=== PATIENT | female | born 1975 | race Caucasian/White ===

== ENCOUNTER → 2020-06-14 | Outpatient (CLI) | payer BC ==
--- NOTE | 2020-06-18 09:04 | MM ---
Reason for exam: screening (asymptomatic). Last mammogram was performed 2 years and 4 months ago. History: Family history of breast cancer in maternal grandmother and breast cancer in maternal uncle. Physical Findings: A clinical breast exam by your physician is recommended on an annual basis and results should be correlated with mammographic findings. MG 3D Screening Mammo W/Cad Bilateral CC, MLO, and XCCL view(s) were taken. Prior study comparison: February 22, 2018, mammogram, performed at [facility]. May 14, 2016, mammogram, performed at [facility]. The breast tissue is heterogeneously dense. This may lower the sensitivity of mammography. No significant changes when compared with prior studies. ASSESSMENT: Negative, BI-RAD 1 RECOMMENDATION: Routine screening mammogram of both breasts in 1 year.
== END | disposition home or self-care (01) ==
LOC: RADMAMWWP 14:42
PROVIDERS: ATTEND Obstetrics & Gynecology
DX: Z12.31 Encounter for screening mammogram for malignant neoplasm of breast (principal); Z80.3 Family history of malignant neoplasm of breast
CPT/HCPCS: 77063; 77067

== ENCOUNTER → 2021-07-25 | Outpatient (CLI) | payer BC ==
--- NOTE | 2021-07-29 14:31 | MM ---
Reason for exam: screening (asymptomatic). Last mammogram was performed 1 year and 1 month ago. History: Family history of breast cancer in maternal grandmother and breast cancer in maternal uncle. Physical Findings: A clinical breast exam by your physician is recommended on an annual basis and results should be correlated with mammographic findings. MG 3D Screening Mammo W/Cad Bilateral CC and MLO view(s) were taken. Prior study comparison: June 14, 2020, bilateral MG 3d screening mammo w/cad. February 22, 2018, mammogram, performed at [facility]. There are scattered fibroglandular densities. No significant changes when compared with prior studies. ASSESSMENT: Benign, BI-RAD 2 RECOMMENDATION: Routine screening mammogram of both breasts in 1 year.
== END | disposition home or self-care (01) ==
LOC: RADMAMWWP 16:16
PROVIDERS: ATTEND Obstetrics & Gynecology
DX: Z12.31 Encounter for screening mammogram for malignant neoplasm of breast (principal); Z80.3 Family history of malignant neoplasm of breast
CPT/HCPCS: 77063; 77067

== ENCOUNTER 2022-04-24 15:19 | Inpatient (IN) | payer BC ==
[2022-04-24] MEDS ORDERED: ACYCLOVIR 800 MG TAB PO STA (19:47)
[2022-04-24] MEDS ORDERED: methylPREDNISolone SOD SUCCI 125 MG/2 ML VIAL IV STA (19:57)
[2022-04-24] MEDS ORDERED: MORPHINE SULFATE 4 MG/ML SYRINGE IV PRN (20:00)
[2022-04-24] MEDS ORDERED: NALOXONE 0.4 MG/ML 1 ML VIAL IV PRN (20:00)
[2022-04-24] MEDS ORDERED: MORPHINE SULFATE 4 MG/ML SYRINGE IVP STA (20:03)
[2022-04-24] MEDS ORDERED: ARTIFICIAL TEARS-HYPROMELLOSE DROPS 15 ML BTL RIGHT EYE STA (21:42)
[2022-04-24] MEDS: SODIUM CHLORIDE 0.9% 1,000 ML IV SCH (22:03)
--- NOTE | 2022-04-24 22:04 | ED ---
Neuro HPI - General Chief Complaint: Neuro Symptoms/Deficit Stated Complaint: Face paralysis, Shingles Time Seen by Provider: 04/24/22 19:28 Source: patient Mode of arrival: ambulatory Limitations: no limitations - History of Present Illness Is the patient presenting with stroke symptoms?: No Initial Comments: Patient is a 46-year-old female with a past medical history hypertension and diabetes mellitus who presents to the emergency department with a chief complaint of facial paralysis. Patient states she has had a rash over her right side since Labor Day weekend. The rash is both itchy and painful. Patient has not taken any medication for this rash. Patient states 2 days ago she developed right-sided facial paralysis and rash on right face/neck. States she is unable to close her right eye all the way and has issues with smiling. Reports right ear pain which radiates into the right cheek. Reports blurry vision. Denies double vision and eye pain. Patient has history of chickenpox. Denies previous history of shingles. Denies weakness, numbness, tingling in the extremities. - Related Data Home Medications: Home Medications Medication Instructions Recorded Confirmed Cyclobenzaprine [Flexeril] 10 mg PO HS 04/24/22 04/24/22 DULoxetine HCL [Cymbalta] 30 mg PO HS 04/24/22 04/24/22 Fremanezumab-Vfrm [Ajovy 1 syr SQ QMONTHLY 04/24/22 04/24/22 Autoinjector] Rivaroxaban [Xarelto] 20 mg PO HS 04/24/22 04/24/22 lisinopriL [Zestril] 10 mg PO HS 04/24/22 04/24/22 metFORMIN HCL [Glucophage] 1,000 mg PO BID 04/24/22 04/24/22 Allergies/Adverse Reactions: Allergies Allergy/AdvReac Type Severity Reaction Status Date / Time hydromorphone [From Dilaudid] Allergy Unknown Verified 04/24/22 20:21 propoxyphene Allergy Unknown Verified 04/24/22 20:21 [From Darvocet-N] Review of Systems ROS Statement: Those systems with pertinent positive or pertinent negative responses have been documented in the HPI. ROS Other: All systems not noted in ROS Statement are negative. General Exam Limitations: no limitations General appearance: alert, in no apparent distress Head exam: Present: other (1 2 cm lesion on right middle cheek ) Eye exam: Present: PERRL, EOMI. Absent: scleral icterus, conjunctival injection, nystagmus, periorbital swelling, periorbital tenderness Pupils: Present: normal accommodation ENT exam: Present: TM's normal bilaterally, normal external ear exam Neck exam: Present: full ROM. Absent: normal inspection (few small lesions on right neck beneath ear ) Respiratory exam: Present: normal lung sounds bilaterally. Absent: respiratory distress, wheezes, rales, rhonchi, stridor Cardiovascular Exam: Present: regular rate, normal rhythm, normal heart sounds. Absent: systolic murmur, diastolic murmur, rubs, gallop, clicks GI/Abdominal exam: Present: soft, normal bowel sounds, other (dermatomal shingles rash on right flank ). Absent: distended, tenderness, guarding, rebound, rigid Neurological exam: Present: alert, oriented X3, CN II-XII intact Expanded Patient oriented to: Present: person, place, time Cranial nerves: EOM's Intact: Normal, Tongue Deviation: Normal, Nystagmus: Normal, Facial Sensation: Normal, Facial Palsy without Forehead Movement: Abnormal Right (patient cannot lift right eyebrow however has botox for migraines ) Cerebellar function: Finger to Nose: Normal, Heel to Rojas: Normal, Romberg: Normal Sensory exam: Upper Extremity Light Touch: Normal, Lower Extremity Light Touch: Normal Motor strength exam: RUE: 5, LUE: 5, RLE: 5, LLE: 5 Psychiatric exam: Present: normal affect, normal mood Skin exam: Present: warm, dry, intact, normal color, rash Stroke [facility] - Medical Decision Making This is a 46-year-old female who presents with facial paralysis and rash. There is right-sided paralysis with smile asymmetry. Patient is unable to close right eye. There is no forehead movement however patient states she has Botox in forehead. PERRL. Few lesions present on right cheek and right neck. Shingles like rash present on the right torso. 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 Acyclovir and Solu-Medrol given. Pain controlled. Case discussed with [facility] who accepts admission. ID and optho are on consult. Asked nurse to obtain visual acuity several times however this was not completed before patient was admitted and moved upstairs. Dr. Tiwari is my attending. Past Medical History Past Medical History: No Reported History, Diabetes Mellitus, Hypertension Additional Past Medical History / Comment(s): clotting disorder- un dx. 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
[2022-04-25] MEDS: HYDROcodone/APAP 5-325MG 1 EACH TAB PO PRN (04:50)
[2022-04-25] MEDS ORDERED: DEXTROSE 50% SYRINGE 50 ML IVP PRN ×2 (10:05)
[2022-04-25] MEDS: INSULIN ASPART (NovoLOG) 100 UNIT/ML VIAL SQ SCH ×2 (12:57→18:06)
[2022-04-25] MEDS: ACYCLOVIR SODIUM 750 MG in SODIUM CHLORIDE 0.9% 100 ML IVPB SCH ×2 (12:58→20:22)
[2022-04-25] MEDS: GABAPENTIN 100 MG CAP PO SCH ×3 (12:59→21:19)
[2022-04-25] MEDS: metFORMIN 500 MG TAB PO SCH ×2 (12:59→21:14)
[2022-04-25 17:49] LABS: Glucose,Whole Blood 129 mg/dL (70-110)
[2022-04-25] MEDS: SODIUM CHLORIDE 0.9% 1,000 ML IV SCH ×2 (18:05→22:58)
[2022-04-25] MEDS ORDERED: ARTIFICIAL TEARS-HYPROMELLOSE DROPS 15 ML BTL BOTH EYES PRN ×2 (18:19→19:08)
[2022-04-25] MEDS ORDERED: TROPICAMIDE 1% OPHTH DROPS 2 ML BTL BOTH EYES ONE (19:08)
[2022-04-25] MEDS ORDERED: PROPARACAINE 0.5% OPHTH DROPS 15 ML BTL BOTH EYES STA (19:08)
[2022-04-25] MEDS: PHENYLEPHRINE 2.5% OPHTH DRP 2ML BOTH EYES SCH (19:20)
--- NOTE | 2022-04-25 20:10 | P.CON ---
Consult Note - . Consult date: 04/25/22 Assessment/Plan:: This is a 2u8 y/[age] female with type II DM for the last couple of years who is not familiar with her last a-1-C. She, 2 weeks prior to admission, experienced what she initially believed was insect bites whichwere uncomfortable and were as sociated with a rash, on her right lower trunk. 2 days prior to admission she began to experience right facial swelling and pain with poor eyelid closure. Pain has been upwards of 8/10 and is improved on current treatment. She denies any vision changes or diplopia. She feels the numbness on lower portion of the face and along the right side of her tongue. Two months ago completed a diabetic eye exam with no comment of any eye lesions or problems. She only uses OTC readers for near vision work. External: right facial swelling with obvious Lei's palsy and demonstrates poor eyelid tone and totally inadequate closure on the right. She does demonstrate a good Lei's phenomenon. There are no papules or specific lesions on the face or the external pinna or canal. Va: without correction 20/20 OU Pupils: -APD EOM: full D&V CF: normal OU IOP: 15 mm Hg OD, 16 mm Hg OS via tonopen @ 1845 Cornea: no jim staining with fluorescein on examination AC: clear & quiet Iris: blue, normal Lens: clear Dilation 2.5% Hima & 1% trop @ 1855 (expect 7 dilation) Vitreous: clear Optic nerve: S/F/P C:D 0.25 Macula: quiet +FLR Vasc: 0.67 Peripheral: normal without path 360 A: Camden Smith, on the right side. No overt corneal problems at this time, some increased dryness due too poor eyelid function. P: 1) proceed with normal antiviral treatment, as planned 2) will begin regular patching of the eye dressing the eye with appropriate tear ointment and lubricating drops. Prolonged palsy problem may require a partial temporary tarsorraphy. 3) will see in office early next week. Thank you for the consultation.
[2022-04-25] MEDS: ARTIFICIAL TEARS OINTMENT 3.5 GM TUBE RIGHT EYE PRN (20:22)
[2022-04-25 20:41] LABS: Glucose,Whole Blood 175 mg/dL (70-110)
[2022-04-25] MEDS: RIVAROXABAN 20 MG TAB PO SCH (21:14)
[2022-04-25] MEDS: lisinopriL 10 MG TAB PO SCH (21:14)
[2022-04-25] MEDS: CYCLOBENZAPRINE 10 MG TAB PO SCH (21:14)
[2022-04-25] MEDS: DULoxetine HCL 30 MG CAPSULE.DR PO SCH (21:14)
--- NOTE | 2022-04-25 21:21 | P.HPIM ---
History of Present Illness H&P Date: 04/25/22 Chief Complaint: Right face numbness This is a pleasant 46-year-old patient who follows with Dr. Orosco. Chronic stable medical conditions include diabetes, hypertension, chronic pulmonary embolism in 2010 in 2003 on xarelto. Patient developed shingles in the right lateral lower abdomen wall about 2 weeks ago. Has some pain itching in that area. Yesterday patient noticed right-sided face to become numb. And also bit painful. Also feels a bit numb. Decreased blink in the right eye. Discomfort in the right eye. Decided to come in. Patient had not seek in any medical attention for the same. No headache. No fever no chills Review of systems: GEN.: Tired EYES: Slight blurriness in the right vision HEENT: As above NECK: None RESPIRATORY: None CARDIOVASCULAR: None GASTROINTESTINAL: None GENITOURINARY: None MUSCULOSKELETAL: None LYMPHATICS: None HEMATOLOGICAL: None PSYCHIATRY: None NEUROLOGICAL: As above Past medical history to include: Diabetes, GI bleed, hypertension, bony embolism in 2003, 2009, workup was negative, anxiety depression PTSD Social history: . Homemaker. Alcohol rarely. Nonsmoker Physical examination: VITAL SIGNS: 98.4, 120, 20, 1:30/77, 99% on room air upon presentation] GENERAL: BMI 34.7 and declining but awake a bit tired. EYES: Pupils equal. Conjunctiva normal. HEENT: External appearance of nose and ears normal, oral cavity grossly normal. NECK: JVD not raised; masses not palpable. HEART: First and second heart sounds are normal; no edema. LUNGS: Respiratory rate normal; clear to auscultation. ABDOMEN: Soft, nontender, liver spleen not palpable, no masses palpable. . Some healing rash off herpes zoster along the L1 L3 dermatome PSYCH: Alert and oriented x3; mood and affect. Anxiousl. MUSCULOSKELETAL:No Clubbing/cyanosis;muscles-grossly intact NEUROLOGICAL: Right facial decreased sensation, tender, multiple still left with smiling, slight decrease in vision in the right eye. LYMPHATICS: No lymph nodes palpable in the axilla and neck INVESTIGATIONS, reviewed in the clinical context: Assessment and plan: -Acute herpes zoster in the ophthalmic/fascial branch. Manifesting with slight blurriness in vision of the right eye, this is up for 2 weeks having herpes zoster in the right abdominal wound. We'll start the patient and IV acyclovir. ID and neurology will be consulted. -Diabetes mellitus type 2, chronic and oral hypoglycemic Glucophage. Sliding scale insulin -Essential hypertension Zestril -Chronic pulmonary embolism in 2003 and 2009 Xarelto -Depression and anxiety not otherwise specified Cymbalta IV acyclovir. Resumed medications. Accu-Cheks. Consultation to neurology, ID, ophthalmology. Given the severity and progression of herpes zoster patient will need a few days of IV acyclovir. Patching of the right eye. Artificial tears. Given the complexity and severity of patient's condition expect the patient to be in the hospital at least for 2 overnights Past Medical History Past Medical History: Diabetes Mellitus, GI Bleed, Hypertension, Pulmonary Embolus (PE) Additional Past Medical History / Comment(s): clotting disorder- un dx. pcos History of Any Multi-Drug Resistant Organisms: None Reported Past Surgical History: Back Surgery, Section, Cholecystectomy Additional Past Surgical History / Comment(s): laminectomyx2, muscle bx on left leg, lap bad 2012 Past Anesthesia/Blood Transfusion Reactions: Previous Problems w/ Anesthesia Additional Past Anesthesia/Blood Transfusion Reaction / Comment(s): been awake during two surgeries Past Psychological History: Anxiety, Depression, PTSD Smoking Status: Former smoker Past Alcohol Use History: Rare Past Drug Use History: Marijuana - Past Family History Mother Additional Family Medical History / Comment(s): cabbag,colitis. mother at age 64 Father Family Medical History: Hypertension Additional Family Medical History / Comment(s): heart chacha replaced , two cardiac stents Medications and Allergies Home Medications Medication Instructions Recorded Confirmed Type Cyclobenzaprine [Flexeril] 10 mg PO HS 04/24/22 04/24/22 History DULoxetine HCL [Cymbalta] 30 mg PO HS 04/24/22 04/24/22 History Fremanezumab-Vfrm [Ajovy 1 syr SQ QMONTHLY 04/24/22 04/24/22 History Autoinjector] Rivaroxaban [Xarelto] 20 mg PO HS 04/24/22 04/24/22 History lisinopriL [Zestril] 10 mg PO HS 04/24/22 04/24/22 History metFORMIN HCL [Glucophage] 1,000 mg PO BID 09/22/22 09/22/22 History Allergies Allergy/AdvReac Type Severity Reaction Status Date / Time hydromorphone [From Dilaudid] Allergy Unknown Verified 04/24/22 20:21 propoxyphene Allergy Unknown Verified 04/24/22 20:21 [From Darvocet-N] Physical Exam Vitals: Vital Signs Temp Pulse Pulse Resp BP BP Pulse Ox 04/25/22 20:45 98.3 F 105 H 16 132/77 99 04/25/22 15:00 97.8 F 99 18 122/70 98 04/25/22 07:00 98.3 F 98 18 113/76 96 04/25/22 02:05 98.3 F 103 H 17 98/43 94 L 04/24/22 23:03 98.1 F 102 H 17 142/90 99 04/24/22 21:49 114 H 20 137/74 97 Intake and Output 04/25/22 04/25/22 04/25/22 06:59 14:59 22:59 Intake Total 360 240 Balance 360 240 Intake: Oral 360 240 Other: Voiding Method Toilet # Voids 1 3 Weight 97.522 kg Results Labs: Abnormal Lab Results - Last 24 Hours (Table) 04/25/22 04/25/22 Range/Units 17:47 20:39 POC Glucose (mg/dL) 129 H 175 H (70-110) mg/dL Thrombosis Risk Factor Assmnt - Choose All That Apply Any of the Below Risk Factors Present?: Yes Each Factor Represents 1 point: Age 41-60 years, Obesity (BMI >25) Other Risk Factors: Yes Each Risk Factor Represents 3 Points: History of DVT/PE Other congenital or acquired thrombophilia - If yes, enter type in comment: No Thrombosis Risk Factor Assessment Total Risk Factor Score: 5 Thrombosis Risk Factor Assessment Level: High Risk
--- NOTE | 2022-04-25 22:13 | P.CONS ---
History of Present Illness - Reason for Consult Consult date: 04/25/22 - History of Present Illness Patient is a 46-year-old female with a past medical history significant for hypertension diabetes mellitus presenting to the ER last evening for evaluation of facial paralysis patient apparently has developed a rash on the right side of her lower abdominal area since which has been itchy and painful 2 days ago the patient noticed to have right-sided facial weakness unable to close her right eye all the way and has issue with the smiling also complains of discomfort to the right ear and cheek area with the symptom the patient was evaluated by the ER physician on arrival to the ER patient was afebrile and no fever have been recorded subsequently patient has been diagnosed with Camden Smith syndrome started on acyclovir infectious disease was consulted for further management of antibiotic therapy Past Medical History Past Medical History: Diabetes Mellitus, GI Bleed, Hypertension, Pulmonary Embolus (PE) Additional Past Medical History / Comment(s): clotting disorder- un dx. pcos History of Any Multi-Drug Resistant Organisms: None Reported Past Surgical History: Back Surgery, Section, Cholecystectomy Additional Past Surgical History / Comment(s): laminectomyx2, muscle bx on left leg, lap bad 2012 Past Anesthesia/Blood Transfusion Reactions: Previous Problems w/ Anesthesia Additional Past Anesthesia/Blood Transfusion Reaction / Comm: been awake during two surgeries Past Psychological History: Anxiety, Depression, PTSD Smoking Status: Former smoker Past Alcohol Use History: Rare Past Drug Use History: Marijuana - Past Family History Mother Additional Family Medical History / Comment(s): cabbag,colitis. mother at age 64 Father Family Medical History: Hypertension Additional Family Medical History / Comment(s): heart chacha replaced , two cardiac stents Medications and Allergies Home Medications Medication Instructions Recorded Confirmed Type Cyclobenzaprine [Flexeril] 10 mg PO HS 04/24/22 04/24/22 History DULoxetine HCL [Cymbalta] 30 mg PO HS 04/24/22 04/24/22 History Fremanezumab-Vfrm [Ajovy 1 syr SQ QMONTHLY 04/24/22 04/24/22 History Autoinjector] Rivaroxaban [Xarelto] 20 mg PO HS 04/24/22 04/24/22 History lisinopriL [Zestril] 10 mg PO HS 04/24/22 04/24/22 History metFORMIN HCL [Glucophage] 1,000 mg PO BID 04/24/22 04/24/22 History Allergies Allergy/AdvReac Type Severity Reaction Status Date / Time hydromorphone [From Dilaudid] Allergy Unknown Verified 04/24/22 20:21 propoxyphene Allergy Unknown Verified 04/24/22 20:21 [From Darvocet-N] Physical Exam Vitals: Vital Signs Temp Pulse Pulse Resp BP BP Pulse Ox 04/25/22 07:00 98.3 F 98 18 113/76 96 04/25/22 02:05 98.3 F 103 H 17 98/43 94 L 04/24/22 23:03 98.1 F 102 H 17 142/90 99 04/24/22 21:49 114 H 20 137/74 97 04/24/22 15:45 98.4 F 120 H 20 130/77 99 Intake and Output 04/24/22 04/25/22 04/25/22 22:59 06:59 14:59 Intake Total 120 Balance 120 Intake: Oral 120 Other: # Voids 1 0 Weight 97.522 kg 97.522 kg Assessment and Plan (1) Pablo's palsy Current Visit: Yes Status: Acute Code(s): G51.0 - PABLO'S PALSY SNOMED Code(s): 633547393 Plan: 1patient with the right sided Pablo's palsy, patient currently do not have any rash suggestive of herpes zoster infection, rash on the right lower abdominal area is very atypical, with etiology of Pablo's palsy cleared to be HSV infection serologies we will check versus Lyme's disease. 2we will obtain Lyme serology and HSV serology along with inflammatory markers. 3continue with the acyclovir we will add doxycycline 100mg bid while waiting for the work-up to be completed We will follow on clinical condition and cultures to further adjust medication if needed Thank you for this consultation will follow this patient along with you Time with Patient: Greater than 30
[2022-04-25] MEDS: DOXYCYCLINE 100 MG CAP PO SCH (22:57)
[2022-04-26] MEDS: ARTIFICIAL TEARS OINTMENT 3.5 GM TUBE RIGHT EYE PRN ×3 (02:10→20:49)
[2022-04-26] MEDS: ACYCLOVIR SODIUM 750 MG in SODIUM CHLORIDE 0.9% 100 ML IVPB SCH ×3 (02:10→18:56)
[2022-04-26 07:04] LABS: Glucose,Whole Blood 99 mg/dL (70-110)
[2022-04-26] MEDS: INSULIN ASPART (NovoLOG) 100 UNIT/ML VIAL SQ SCH ×3 (07:35→17:25)
[2022-04-26 07:47] LABS: Basophils # (A) 0.1 k/uL (0-0.2); Basophils % (A) 0 %; Eosinophils # (A) 0.1 k/uL (0-0.7); Eosinophils % (A) 1 %; HCT 37.4 % (34.0-46.0); HGB 11.7 gm/dL (11.4-16.0); Lymphocytes # (A) 3.5 k/uL (1.0-4.8); Lymphocytes % (A) 34 %; MCH 29.3 pg (25.0-35.0); MCHC 31.3 g/dL (31.0-37.0); MCV 93.5 fL (80.0-100.0); Mean Platelet Volume 6.7; Monocytes # (A) 0.3 k/uL (0-1.0); Monocytes % (A) 3 %; Neutrophils # (A) 6.3 k/uL (1.3-7.7); Neutrophils % (A) 61 %; Platelet Count 370 k/uL (150-450); RDW 13.8 % (11.5-15.5); WBC 10.4 k/uL (3.8-10.6)
[2022-04-26 08:08] LABS: ALT 18 U/L (4-34); AST 17 U/L (14-36); African American GFR (CKD) >90 (>60 ml/min/1.73 sqM); Albumin 3.3 g/dL (3.5-5.0); Albumin/Globulin Ratio 1.4; Alkaline Phosphatase 50 U/L (38-126); Anion Gap 8 mmol/L; Blood Urea Nitrogen 16 mg/dL (7-17); C Reactive Protein <0.5 mg/dL (<1.0); Calcium 8.1 mg/dL (8.4-10.2); Carbon Dioxide 20 mmol/L (22-30); Chloride 106 mmol/L (98-107); Globulin 2.3 g/dL; Glucose 103 mg/dL (74-99); Non-African American GFR(CKD) >90 (>60 ml/min/1.73 sqM); Potassium 4.3 mmol/L (3.5-5.1); Sodium 134 mmol/L (137-145); Total Bilirubin 0.3 mg/dL (0.2-1.3); Total Protein 5.6 g/dL (6.3-8.2)
[2022-04-26] MEDS: DOXYCYCLINE 100 MG CAP PO SCH ×2 (09:03→20:49)
[2022-04-26] MEDS: GABAPENTIN 100 MG CAP PO SCH ×3 (09:03→20:48)
[2022-04-26] MEDS: metFORMIN 500 MG TAB PO SCH ×2 (09:04→20:48)
[2022-04-26 12:08] LABS: Glucose,Whole Blood 82 mg/dL (70-110)
[2022-04-26 16:41] LABS: Glucose,Whole Blood 97 mg/dL (70-110)
--- NOTE | 2022-04-26 16:43 | P.PN ---
Progress Note - Text Progress Note Date: 04/26/22 Chief Complaint: Right face numbness This is a pleasant 46-year-old patient who follows with Dr. Orosco. Chronic stable medical conditions include diabetes, hypertension, chronic pulmonary embolism in 2010 in 2003 on xarelto. Patient developed shingles in the right lateral lower abdomen wall about 2 weeks ago. Has some pain itching in that area. Yesterday patient noticed right-sided face to become numb. And also bit painful. Also feels a bit numb. Decreased blink in the right eye. Discomfort in the right eye. Decided to come in. Patient had not seek in any medical attention for the same. No headache. No fever no chills Patient started on IV acyclovir. Consultation to ID, ophthalmology, neurology done. Artificial tears, eye patch to right eye. April 26: Patch on the right eye. Still tenderness in the right cheek. No headache. No nausea vomiting. Discussed with the patient has been at the bedside. ID workup in place. Active Medications Hydrocodone Bitart/Acetaminophen (Hydrocodone/Apap 5-325mg 1 Each Tab) 1 each PO Q6HR PRN PRN Reason: Pain Last Admin: 04/25/22 04:50 Dose: 1 each Artificial Tears (Artificial Tears-Hypromellose Drops 15 Ml Btl) 1 drops BOTH EYES QID PRN PRN Reason: Dry Eye(s) Artificial Tears (Artificial Tears-Hypromellose Drops 15 Ml Btl) 1 drops BOTH EYES QID PRN PRN Reason: Dry Eye(s) Cyclobenzaprine HCl (Cyclobenzaprine 10 Mg Tab) 10 mg PO HS [facility] Last Admin: 04/25/22 21:14 Dose: 10 mg Dextrose/Water (Dextrose 50% Syringe 50 Ml) 25 ml IVP PER PROTOCOL PRN; Protocol PRN Reason: Hypoglycemia Dextrose/Water (Dextrose 50% Syringe 50 Ml) 50 ml IVP PER PROTOCOL PRN; P rotocol PRN Reason: Hypoglycemia Doxycycline Monohydrate (Doxycycline 100 Mg Cap) 100 mg PO BID [facility]; Protocol Last Admin: 04/26/22 09:03 Dose: 100 mg Duloxetine HCl (Duloxetine Hcl 30 Mg Capsule.) 30 mg PO HS [facility] Last Admin: 04/25/22 21:14 Dose: 30 mg Gabapentin (Gabapentin 100 Mg Cap) 100 mg PO TID [facility] Last Admin: 04/26/22 09:03 Dose: 100 mg Sodium Chloride (Saline 0.9%) 1,000 mls @ 75 mls/hr IV .[id number] [facility] Last Admin: 04/25/22 22:58 Dose: Not Given Acyclovir Sodium 750 mg/ (Sodium Chloride) 115 mls @ 100 mls/hr IVPB Q8H [facility]; Protocol Last Admin: 04/26/22 10:45 Dose: 100 mls/hr Insulin Aspart (Insulin Aspart (Novolog) 100 Unit/Ml Vial) 0 unit SQ AC-TID [facility]; Protocol Last Admin: 04/26/22 12:31 Dose: Not Given Lisinopril (Lisinopril 10 Mg Tab) 10 mg PO HS [facility] Last Admin: 04/25/22 21:14 Dose: 10 mg Metformin HCl (Metformin 500 Mg Tab) 1,000 mg PO BID [facility] Last Admin: 04/26/22 09:04 Dose: 1,000 mg Morphine Sulfate (Morphine Sulfate 4 Mg/Ml Syringe) 4 mg IV Q4HR PRN PRN Reason: Severe Pain (Scale 7 to 10) Last Admin: 04/25/22 13:26 Dose: 4 mg Multi-Ingred Cream/Lotion/Oil/Oint (Artificial Tears Ointment 3.5 Gm Tube) 1 applic RIGHT EYE QID PRN PRN Reason: Dry Eye(s) Last Admin: 04/26/22 09:04 Dose: 1 applic Naloxone HCl (Naloxone 0.4 Mg/Ml 1 Ml Vial) 0.2 mg IV Q2M PRN PRN Reason: Opioid Reversal Phenylephrine HCl (Phenylephrine 2.5% Ophth Drp 2ml) 1 drops BOTH EYES DIRECTED [facility] Last Admin: 04/25/22 19:20 Dose: 1 drops Rivaroxaban (Rivaroxaban 20 Mg Tab) 20 mg PO HS [facility]; Protocol Last Admin: 04/25/22 21:14 Dose: 20 mg Past medical history to include: Diabetes, GI bleed, hypertension, bony embolism in 2003, 2009, workup was negative, anxiety depression PTSD Social history: . Homemaker. Alcohol rarely. Nonsmoker Physical examination: VITAL SIGNS: 98, 103, 16, 145/82, 98% on room air GENERAL: Sitting up in a chair awake EYES: Patch on the right eye HEENT: External appearance of nose and ears normal, oral cavity grossly normal. NECK: JVD not raised; masses not palpable. HEART: First and second heart sounds are normal; no edema. LUNGS: Respiratory rate normal; clear to auscultation. ABDOMEN: Soft, nontender, liver spleen not palpable, no masses palpable. . Some healing rash off herpes zoster along the L1 L3 dermatome PSYCH: Alert and oriented x3; mood and affect. Anxiousl. MUSCULOSKELETAL:No Clubbing/cyanosis;muscles-grossly intact NEUROLOGICAL: Right facial decreased sensation, tender, multiple still left with smiling, slight decrease in vision in the right eye. No forehead furrows on looking up LYMPHATICS: No lymph nodes palpable in the axilla and neck INVESTIGATIONS, reviewed in the clinical context: Assessment and plan: -Possible Acute herpes zoster in the ophthalmic/facial branch. Manifesting with slight blurriness in vision of the right eye, this is up for 2 weeks having herpes zoster in the right abdominal wall. IV acyclovir. Past to the right eye. Artificial tears. Consultation to ID, ophthalmology, neurology -Diabetes mellitus type 2, chronic and oral hypoglycemic Glucophage. Sliding scale insulin -Essential hypertension Zestril -Chronic pulmonary embolism in 2003 and 2009 Xarelto -Depression and anxiety not otherwise specified Cymbalta Continue IV acyclovir. Workup by ID in place. Discussed with the patient and . We'll await neurology input.
[2022-04-26] MEDS: predniSONE 20 MG TAB PO SCH (17:24)
[2022-04-26] MEDS: SODIUM CHLORIDE 0.9% 1,000 ML IV SCH (17:24)
--- NOTE | 2022-04-26 18:53 | P.CNNES ---
History of Present Illness Consult date: 04/26/22 Requesting physician: Aman Guzman Reason for Consult: Right facial weakness/pain/shingles History of Present Illness: This is a telemedicine neurology consultation performed today on 04/26/2022. Patient is a 46-year-old female with history of hypertension, borderline diabetes for a few years, PCOS, migraine headaches who came to the hospital on 04/24/2022 for facial weakness, shingles and neuro deficit. Patient states that on the , she developed a rash on right lower trunk region. She felt it was due to a bug bite. However it started spreading on the right thigh. It itches and reeves as well. Patient states that [place] face and it looked funny. The next day on Thursday she woke up and had complete facial weakness on the right side. On Thursday she went to her neurologist where she underwent Botox injection for migraines. Patient states that she was wearing a mask, but her right eye was not closing. She did not discuss it with her neurologist about the facial weakness. she saw her primary physician, who recommended her to go to the ER. Patient denies any history of tick bite. [place] Denies any fever. Patient has been having facial pain mainly pointing to the right mormon, anterior part of the right ear, and right lower jaw which she rated 6/10 and describes it as a constant pressure. The rash on the right trunk is hurting about 8/10. She denies any pain inside the ear. She feels right half of the tongue feels numb. No slurred speech, no symptoms involving the arms or legs. She feels everything tastes of. She is noticing hyperacusis on the right side. She has been noticing slightly excessive tears on the right side. Patient has not taken any medication for the rash prior to arrival. Patient has been seen by infectious disease yesterday, who diagnosed with a right Lei's palsy. Patient does not have any rash suggestive of herpes zoster infection. Patient was started on acyclovir IV and the ID added doxycycline 100 mg twice a day to cover the Lyme. Patient's blood test shows normal CBC, sodium 134, renal functions are normal. Hepatic panel normal. CRP normal <0.5 Patient currently on acyclovir 750 mg every 8 hours, Flexeril, doxycycline, Cymbalta 30 mg, gabapentin 100 and 3 times a day, Votaw, insulin, lisinopril, metformin, Xarelto 20 mg. Patient takes Xarelto because she has history of PE times twice. Patient states that she smoked one pack every 3-4 days, quit in 2001. She started at a young. No alcohol. Review of Systems Constitutional: Denies chills, Denies fever Eyes: right dry eye, denies blurred vision, denies decreased vision, denies pain Ears, nose, mouth and throat: Reports headache, Denies dysphagia, Denies neck lump, Denies sore throat Cardiovascular: Denies chest pain, Denies shortness of breath Respiratory: Denies cough Gastrointestinal: Denies abdominal pain, Denies diarrhea, Denies nausea, Denies vomiting Genitourinary: Denies dysuria, Denies hematuria Musculoskeletal: Denies myalgias Integumentary: Reports pruritus, Reports rash Neurological: Reports as per HPI Psychiatric: Denies anxiety, Denies depression Endocrine: Denies fatigue, Denies weight change Hematologic/Lymphatic: Denies lymphadenopathy Allergic/Immunologic: Denies persistent infections Past Medical History Past Medical History: Diabetes Mellitus, GI Bleed, Hypertension, Pulmonary Embolus (PE) Additional Past Medical History / Comment(s): clotting disorder- un dx. pcos History of Any Multi-Drug Resistant Organisms: None Reported Past Surgical History: Back Surgery, Section, Cholecystectomy Additional Past Surgical History / Comment(s): laminectomyx2, muscle bx on left leg, lap bad 2012 Past Anesthesia/Blood Transfusion Reactions: Previous Problems w/ Anesthesia Additional Past Anesthesia/Blood Transfusion Reaction / Comment(s): been awake during two surgeries Past Psychological History: Anxiety, Depression, PTSD Smoking Status: Former smoker Past Alcohol Use History: Rare Past Drug Use History: Marijuana - Past Family History Mother Additional Family Medical History / Comment(s): cabbag,colitis. mother at age 64 Father Family Medical History: Hypertension Additional Family Medical History / Comment(s): heart chacha replaced , two cardia c stents Medications and Allergies Home Medications Medication Instructions Recorded Confirmed Type Cyclobenzaprine [Flexeril] 10 mg PO HS 04/24/22 04/24/22 History DULoxetine HCL [Cymbalta] 30 mg PO HS 04/24/22 04/24/22 History Fremanezumab-Vfrm [Ajovy 1 syr SQ QMONTHLY 04/24/22 04/24/22 History Autoinjector] Rivaroxaban [Xarelto] 20 mg PO HS 04/24/22 04/24/22 History lisinopriL [Zestril] 10 mg PO HS 04/24/22 04/24/22 History metFORMIN HCL [Glucophage] 1,000 mg PO BID 04/24/22 04/24/22 History Allergies Allergy/AdvReac Type Severity Reaction Status Date / Time hydromorphone [From Dilaudid] Allergy Unknown Verified 04/24/22 20:21 propoxyphene Allergy Unknown Verified 04/24/22 20:21 [From Darvocet-N] Physical Examination - Vital Signs Vital Signs: Vital Signs Temp Pulse Resp BP Pulse Ox 04/26/22 07:00 97.9 F 84 16 113/73 99 04/26/22 01:45 98.2 F 86 17 125/76 96 04/25/22 20:45 98.3 F 105 H 16 132/77 99 04/25/22 15:00 97.8 F 99 18 122/70 98 Intake and Output 04/25/22 04/26/22 04/26/22 22:59 06:59 14:59 Intake Total 240 118 Balance 240 118 Intake: Oral 240 118 Other: Voiding Method Toilet Toilet # Voids 2 2 Patient is a middle aged female, in no acute distress. Patient is alert awake oriented to time place and person. Speech and language functions are normal. Patient can name and repeat very well. No aphasia or dysarthria. Attention, concentration and fund of knowledge is adequate. On cranial nerve examination, pupils are equal, round and reacting to light, visual oshea are full on confrontation, with no neglect on double simultaneous stimulation. Extraocular muscles are intact with no nystagmus. Patient has right facial weakness, which is complete. Her tongue protrudes to the midline. Palatal elevation and sensation normal, hearing and shoulder shrug normal, facial sensation normal. On muscle strength testing, there is no pronator drift and the strength is nor mal in arms distally and proximally. Patient has chronic left foot drop related to her previous back surgery. Her hip flexion is also weak on the left about 4 as compared to the right. Right leg is normal. Deep tendon reflexes are symmetric 2 at the biceps, 1+ brachioradialis, 2 at the knees and plantars are flat bilaterally. Sensory to touch is equal with no neglect on double simultaneous stimulation. Cerebellar function showed no ataxia for [id number] testing. No dysdiadochokinesia. Tone and bulk of muscles normal. Gait deferred.. On general examination, there is no carotid bruit or murmur, S1-S2 audible. Chest is clear on consultation. Abdomen is soft nontender. No organomegaly, bowel sounds present. Peripheral pulses are present. No edema. Results - Laboratory Findings CBC and BMP: 04/26/22 07:22 04/26/22 07:22 Abnormal Lab Findings: Abnormal Labs 04/25/22 04/25/22 04/26/22 17:47 20:39 07:22 Sodium 134 L Carbon Dioxide 20 L Glucose 103 H POC Glucose (mg/dL) 129 H 175 H Calcium 8.1 L Total Protein 5.6 L Albumin 3.3 L Assessment and Plan Assessment: * Right facial weakness, probable Lei's palsy. Rule out secondary causes. No evidence of shingles involving the right facial region. Lyme disease needs to be ruled out. * Rash right lower trunk and anterior upper thigh region. Rule out herpetic lesion. * Borderline diabetes * Hypertension * X tobacco use Plan: * Patient is currently on IV acyclovir to cover possible herpetic lesion right lower trunk. * Patient has complete right facial weakness, peripheral type. * Discussed with infectious disease, who cleared for prednisone. We will start prednisone 60 mg daily for 7 days, then decrease by 10 mg every day until off. * Need to closely watch for blood sugar while being on high-dose steroids. * Continue eye patching, and artificial tears for right eye. * Await Lyme titer, VZV and HSV serology. * Neurology will follow. Thank you for the consult.
[2022-04-26] MEDS: PHENYLEPHRINE 2.5% OPHTH DRP 2ML BOTH EYES SCH (18:57)
[2022-04-26 20:43] LABS: Glucose,Whole Blood 173 mg/dL (70-110)
[2022-04-26] MEDS: RIVAROXABAN 20 MG TAB PO SCH (20:48)
[2022-04-26] MEDS: DULoxetine HCL 30 MG CAPSULE.DR PO SCH (20:48)
[2022-04-26] MEDS: CYCLOBENZAPRINE 10 MG TAB PO SCH (20:48)
[2022-04-26] MEDS: lisinopriL 10 MG TAB PO SCH (20:48)
[2022-04-26] MEDS: HYDROcodone/APAP 5-325MG 1 EACH TAB PO PRN (22:14)
[2022-04-27] MEDS: SODIUM CHLORIDE 0.9% 1,000 ML IV SCH ×2 (01:31→16:00)
[2022-04-27] MEDS: ACYCLOVIR SODIUM 750 MG in SODIUM CHLORIDE 0.9% 100 ML IVPB SCH ×3 (02:05→18:01)
[2022-04-27 06:48] LABS: Glucose,Whole Blood 114 mg/dL (70-110)
[2022-04-27] MEDS: INSULIN ASPART (NovoLOG) 100 UNIT/ML VIAL SQ SCH ×3 (08:02→17:05)
[2022-04-27] MEDS: metFORMIN 500 MG TAB PO SCH ×2 (08:09→20:29)
[2022-04-27] MEDS: GABAPENTIN 100 MG CAP PO SCH ×3 (08:09→20:29)
[2022-04-27] MEDS: predniSONE 20 MG TAB PO SCH (08:09)
[2022-04-27] MEDS: DOXYCYCLINE 100 MG CAP PO SCH ×2 (08:09→20:29)
[2022-04-27 11:42] LABS: Glucose,Whole Blood 210 mg/dL (70-110)
--- NOTE | 2022-04-27 12:13 | P.PN ---
Progress Note - Text Progress Note Date: 04/27/22 Chief Complaint: Right face numbness This is a pleasant 46-year-old patient who follows with Dr. Orosco. Chronic stable medical conditions include diabetes, hypertension, chronic pulmonary embolism in 2010 in 2003 on xarelto. Patient developed shingles in the right lateral lower abdomen wall about 2 weeks ago. Has some pain itching in that area. Yesterday patient noticed right-sided face to become numb. And also bit painful. Also feels a bit numb. Decreased blink in the right eye. Discomfort in the right eye. Decided to come in. Patient had not seek in any medical attention for the same. No headache. No fever no chills Patient started on IV acyclovir. Consultation to ID, ophthalmology, neurology done. Artificial tears, eye patch to right eye. April 26: Patch on the right eye. Still tenderness in the right cheek. No headache. No nausea vomiting. Discussed with the patient has been at the bedside. ID workup in place. April 27: No new findings. IV acyclovir. Prednisone added by neurology. Per neurology felt to be tried sided Lei's palsy. Awaiting Lyme disease lab results. Active Medications Hydrocodone Bitart/Acetaminophen (Hydrocodone/Apap 5-325mg 1 Each Tab) 1 each PO Q6HR PRN PRN Reason: Pain Last Admin: 04/26/22 22:14 Dose: 1 each Artificial Tears (Artificial Tears-Hypromellose Drops 15 Ml Btl) 1 drops BOTH EYES QID PRN PRN Reason: Dry Eye(s) Artificial Tears (Artificial Tears-Hypromellose Drops 15 Ml Btl) 1 drops BOTH EYES QID PRN PRN Reason: Dry Eye(s) Cyclobenzaprine HCl (Cyclobenzaprine 10 Mg Tab) 10 mg PO HS [facility] Last Admin: 04/26/22 20:48 Dose: 10 mg Dextrose/Water (Dextrose 50% Syringe 50 Ml) 25 ml IVP PER PROTOCOL PRN; Protocol PRN Reason: Hypoglycemia Dextrose/Water (Dextrose 50% Syringe 50 Ml) 50 ml IVP PER PROTOCOL PRN; Protocol PRN Reason: Hypoglycemia Doxycycline Monohydrate (Doxycycline 100 Mg Cap) 100 mg PO BID JOHNATHAN; Protocol Last Admin: 04/27/22 08:09 Dose: 100 mg Duloxetine HCl (Duloxetine Hcl 30 Mg Thea.) 30 mg PO HS [facility] Last Admin: 04/26/22 20:48 Dose: 30 mg Gabapentin (Gabapentin 100 Mg Cap) 100 mg PO TID [facility] Last Admin: 04/27/22 08:09 Dose: 100 mg Sodium Chloride (Saline 0.9%) 1,000 mls @ 75 mls/hr IV .[id number] [facility] Last Admin: 04/27/22 01:31 Dose: Not Given Acyclovir Sodium 750 mg/ (Sodium Chloride) 115 mls @ 100 mls/hr IVPB Q8H [facility]; Protocol Last Admin: 04/27/22 11:38 Dose: 100 mls/hr Insulin Aspart (Insulin Aspart (Novolog) 100 Unit/Ml Vial) 0 unit SQ AC-TID [facility]; Protocol Last Admin: 04/27/22 12:01 Dose: Not Given Lisinopril (Lisinopril 10 Mg Tab) 10 mg PO HS [facility] Last Admin: 04/26/22 20:48 Dose: 10 mg Metformin HCl (Metformin 500 Mg Tab) 1,000 mg PO BID [facility] Last Admin: 04/27/22 08:09 Dose: 1,000 mg Morphine Sulfate (Morphine Sulfate 4 Mg/Ml Syringe) 4 mg IV Q4HR PRN PRN Reason: Severe Pain (Scale 7 to 10) Last Admin: 04/25/22 13:26 Dose: 4 mg Multi-Ingred Cream/Lotion/Oil/Oint (Artificial Tears Ointment 3.5 Gm Tube) 1 applic RIGHT EYE QID PRN PRN Reason: Dry Eye(s) Last Admin: 04/26/22 20:49 Dose: 1 applic Naloxone HCl (Naloxone 0.4 Mg/Ml 1 Ml Vial) 0.2 mg IV Q2M PRN PRN Reason: Opioid Reversal Phenylephrine HCl (Phenylephrine 2.5% Oph Drp 2ml) 1 drops BOTH EYES DIRECTED [facility] Last Admin: 04/26/22 18:57 Dose: 1 drops Prednisone (Prednisone 20 Mg Tab) 60 mg PO DAILY [facility] Last Admin: 04/27/22 08:09 Dose: 60 mg Rivaroxaban (Rivaroxaban 20 Mg Tab) 20 mg PO HS [facility]; Protocol Last Admin: 04/26/22 20:48 Dose: 20 mg Past medical history to include: Diabetes, GI bleed, hypertension, bony embolism in 2003, 2009, workup was negative, anxiety depression PTSD Social history: . Homemaker. Alcohol rarely. Nonsmoker Physical examination: VITAL SIGNS: 97.8, 79, 14, 109/66, 96% room air GENERAL: Sitting up in bed, awake EYES: Patch on the right eye HEENT: External appearance of nose and ears normal, oral cavity grossly normal. NECK: JVD not raised; masses not palpable. HEART: First and second heart sounds are normal; no edema. LUNGS: Respiratory rate normal; clear to auscultation. ABDOMEN: Soft, nontender, liver spleen not palpable, no masses palpable. . Some healing rash off herpes zoster along the L1 L3 dermatome PSYCH: Alert and oriented x3; mood and affect. Anxiousl. MUSCULOSKELETAL:No Clubbing/cyanosis;muscles-grossly intact NEUROLOGICAL: Right facial decreased sensation, tender, multiple still left with smiling, slight decrease in vision in the right eye. No forehead furrows on looking up INVESTIGATIONS, reviewed in the clinical context: Assessment and plan: -Possible Acute herpes zoster in the - for 2 weeks having herpes zoster in the right abdominal wall. IV acyclovir. Patch to the right eye. Artificial tears. ID and urology following -Right-sided Lei's palsy Being followed by neurology. Acyclovir and steroids. -Diabetes mellitus type 2, chronic and oral hypoglycemic Glucophage. Sliding scale insulin -Essential hypertension Zestril -Chronic pulmonary embolism in 2003 and 2009 Xarelto -Depression and anxiety not otherwise specified Cymbalta Continue IV acyclovir. Steroids added. Other medications to continue. Lyme disease and workup. Pending.
--- NOTE | 2022-04-27 15:07 | CT ---
EXAMINATION TYPE: CT brain wo con DATE OF EXAM: 04/27/2022 COMPARISON: 08/09/2011 HISTORY: right facial weakness CT DLP: 1126 mGycm. Automated Exposure Control for Dose Reduction was Utilized. TECHNIQUE: CT scan of the head is performed without contrast. FINDINGS: There is no acute intracranial hemorrhage, mass effect, or midline shift identified. The ventricles and sulci are within normal limits in size. The globes are intact and the visualized sin uses are clear. IMPRESSION: No acute intracranial hemorrhage, mass effect, or midline shift is seen.
[2022-04-27] MEDS: ACETAMINOPHEN TAB 325 MG TAB PO PRN (15:59)
--- NOTE | 2022-04-27 16:42 | P.PN ---
Subjective Progress Note Date: 04/26/22 Principal diagnosis: Pablo's palsy right-sided Patient is a 46-year-old female presenting to the hospital with right- sided unilateral facial weakness in this patient currently do not have any rash around the auditory canal area did have a rash to the right lower abdominal area 2 weeks prior to her symptoms started. On today's evaluation that is 04/26/2022, the patient denies having any fever or any chills comes to complain of right-sided facial weakness denies having any rash or pain to the right auricular area there is no rash no chest pain shortness of breath or cough no abdominal pain no diarrhea Objective - Vital Signs Vital signs: Vital Signs Temp 97.9 F 04/26/22 07:00 Pulse 84 04/26/22 07:00 Resp 16 04/26/22 07:00 BP 113/73 04/26/22 07:00 Pulse Ox 99 04/26/22 07:00 FiO2 Intake & Output 04/25/22 04/26/22 04/26/22 18:59 06:59 18:59 Intake Total 600 118 Balance 600 118 Intake: Oral 600 118 Other: Voiding Method Toilet Toilet Toilet # Voids 3 2 - Exam GENERAL DESCRIPTION: Middle-aged female lying in bed in no distress HEENT: Right-sided facial weakness no rash RESPIRATORY SYSTEM: Unlabored breathing , decreased breath sounds at bases HEART: S1 S2 regular rate and rhythm , ABDOMEN: Soft , no tenderness EXTREMITIES: No edema feet - Labs CBC & Chem 7: 04/26/22 07:22 04/26/22 07:22 Labs: Abnormal Lab Results - Last 24 Hours (Table) 04/25/22 04/25/22 04/26/22 Range/Units 17:47 20:39 07:22 Sodium 134 L (137-145) mmol/L Carbon Dioxide 20 L (22-30) mmol/L Glucose 103 H (74-99) mg/dL POC Glucose (mg/dL) 129 H 175 H (70-110) mg/dL Calcium 8.1 L (8.4-10.2) mg/dL Total Protein 5.6 L (6.3-8.2) g/dL Albumin 3.3 L (3.5-5.0) g/dL Assessment and Plan (1) Pablo's palsy Current Visit: Yes Status: Acute Code(s): G51.0 - PABLO'S PALSY SNOMED Code(s): 976562664 Plan: 1patient with the right sided Pablo's palsy, patient currently do not have any rash suggestive of herpes zoster infection, rash on the right lower abdominal area is very atypical, with etiology of Pablo's palsy questionably related to be HSV infection versus Lyme's disease. 2 Lyme serology and HSV serology are currently pending 3patient to continue with the acyclovir and doxycycline 100mg bid while waiting for the work-up to be completed Time with Patient: Less than 30
--- NOTE | 2022-04-27 16:44 | P.PN ---
Subjective Progress Note Date: 04/27/22 Principal diagnosis: Pablo's palsy right-sided Patient is a 46-year-old female presenting to the hospital with right- sided unilateral facial weakness in this patient currently do not have any rash around the auditory canal area did have a rash to the right lower abdominal area 2 weeks prior to her symptoms started. On today's evaluation that is 04/27/2022, the patient remains to be afebrile, the patient continued to have right-sided facial weakness, no worsening or i mprovement, the patient denies having any rash or pain to the right auricular area there is no rash no chest pain shortness of breath or cough no abdominal pain no diarrhea Objective - Vital Signs Vital signs: Vital Signs Temp 98.2 F 04/27/22 12:51 Pulse 110 H 04/27/22 12:51 Resp 16 04/27/22 12:51 BP 138/86 04/27/22 12:51 Pulse Ox 95 04/27/22 12:51 FiO2 Intake & Output 04/26/22 04/27/22 04/27/22 18:59 06:59 18:59 Intake Total 838 118 Balance 838 118 Intake: Oral 838 118 Other: Voiding Method Toilet Toilet Toilet # Voids 2 2 3 - Exam GENERAL DESCRIPTION: Middle-aged female lying in bed in no distress HEENT: Right-sided facial weakness no rash RESPIRATORY SYSTEM: Unlabored breathing , decreased breath sounds at bases HEART: S1 S2 regular rate and rhythm , ABDOMEN: Soft , no tenderness EXTREMITIES: No edema feet - Labs CBC & Chem 7: 04/26/22 07:22 04/26/22 07:22 Labs: Abnormal Lab Results - Last 24 Hours (Table) 04/26/22 04/27/22 04/27/22 Range/Units 20:42 06:46 11:40 POC Glucose (mg/dL) 173 H 114 H 210 H (70-110) mg/dL Assessment and Plan (1) Pablo's palsy Current Visit: Yes Status: Acute Code(s): G51.0 - PABLO'S PALSY SNOMED Code(s): 739973398 Plan: 1patient with the right sided Pablo's palsy, patient currently do not have any rash suggestive of herpes zoster infection, rash on the right lower abdominal area is very atypical, with etiology of Pablo's palsy questionably related to be HSV infection versus Lyme's disease. 2 Lyme serology and HSV serology are currently pending, patient did have a CT of the brain that was negative for acute abnormality 3patient to continue with the acyclovir and doxycycline 100mg bid while waiting for the work-up to be completed and monitor clinical course closely Time with Patient: Less than 30
[2022-04-27 16:58] LABS: Glucose,Whole Blood 155 mg/dL (70-110)
[2022-04-27] MEDS: PHENYLEPHRINE 2.5% OPHTH DRP 2ML BOTH EYES SCH (17:11)
[2022-04-27] MEDS: CYCLOBENZAPRINE 10 MG TAB PO SCH (20:28)
[2022-04-27] MEDS: RIVAROXABAN 20 MG TAB PO SCH (20:29)
[2022-04-27] MEDS: DULoxetine HCL 30 MG CAPSULE.DR PO SCH (20:29)
[2022-04-27] MEDS: lisinopriL 10 MG TAB PO SCH (20:29)
[2022-04-27 20:33] LABS: Glucose,Whole Blood 194 mg/dL (70-110)
--- NOTE | 2022-04-27 22:01 | P.PN ---
Subjective Progress Note Date: 04/27/22 This is a telemedicine neurology follow performed today on 04/27/2022. Patient denies any changes in her condition. Denies any changes in the rash. Objective - Vital Signs Vital signs: Vital Signs Temp 98.2 F 04/27/22 12:51 Pulse 110 H 04/27/22 12:51 Resp 16 04/27/22 12:51 BP 138/86 04/27/22 12:51 Pulse Ox 95 04/27/22 12:51 FiO2 Intake & Output 04/26/22 04/27/22 04/27/22 18:59 06:59 18:59 Intake Total 838 0 Balance 838 0 Intake: Oral 838 0 Other: Voiding Method Toilet Toilet Toilet # Voids 2 2 3 - Exam Examination significant for right facial weakness, peripheral type. Patient also has left foot drop, which is chronic. - Labs CBC & Chem 7: 04/26/22 07:22 04/26/22 07:22 Labs: Abnormal Lab Results - Last 24 Hours (Table) 04/26/22 04/27/22 04/27/22 Range/Units 20:42 06:46 11:40 POC Glucose (mg/dL) 173 H 114 H 210 H (70-110) mg/dL Assessment and Plan Assessment: * Right facial weakness, probable Lei's palsy. Rule out secondary causes. No evidence of shingles involving the right facial region. Lyme disease needs to be ruled out. * Rash right lower trunk and anterior upper thigh region. Rule out herpetic lesion. * Borderline diabetes * Hypertension * X tobacco use Plan: * Patient is currently on IV acyclovir to cover possible herpetic lesion right lower trunk. * Patient has complete right facial weakness, peripheral type. * Discussed with infectious disease, who cleared for prednisone. We will start prednisone 60 mg daily for 7 days, then decrease by 10 mg every day until off. * Need to closely watch for blood sugar while being on high-dose steroids. * Continue eye patching, and artificial tears for right eye. * Await Lyme titer, VZV and HSV serology. * CT head performed, which showed no acute process. I personally reviewed CT head, agree with the findings. * Neurologically clear for discharge with the above recommendations regarding prednisone, once cleared by infectious disease. Recommend follow-up with neurologist as outpatient in 2-[address] Roberth Valverde will be available for any neurological concerns starting from Thursday morning.
[2022-04-28] MEDS: ARTIFICIAL TEARS OINTMENT 3.5 GM TUBE RIGHT EYE PRN ×2 (00:25→04:13)
[2022-04-28] MEDS: SODIUM CHLORIDE 0.9% 1,000 ML IV SCH (02:52)
[2022-04-28] MEDS: ACYCLOVIR SODIUM 750 MG in SODIUM CHLORIDE 0.9% 100 ML IVPB SCH ×2 (02:52→10:42)
[2022-04-28 03:25] VITALS: RESP 18
[2022-04-28 07:02] LABS: Glucose,Whole Blood 91 mg/dL (70-110)
[2022-04-28] MEDS: INSULIN ASPART (NovoLOG) 100 UNIT/ML VIAL SQ SCH ×2 (07:24→13:34)
[2022-04-28 08:03] VITALS: TEMP 98.3
[2022-04-28] MEDS: metFORMIN 500 MG TAB PO SCH (09:05)
[2022-04-28] MEDS: predniSONE 20 MG TAB PO SCH (09:05)
[2022-04-28] MEDS: DOXYCYCLINE 100 MG CAP PO SCH (09:05)
[2022-04-28] MEDS: GABAPENTIN 100 MG CAP PO SCH ×2 (09:06→15:52)
[2022-04-28 10:56] LABS: HSV I IgG Interp POSITIVE (NEGATIVE); HSV II IgG Interp POSITIVE (NEGATIVE)
[2022-04-28 13:08] LABS: Glucose,Whole Blood 137 mg/dL (70-110)
[2022-04-28] MEDS: ACETAMINOPHEN TAB 325 MG TAB PO PRN (13:28)
[2022-04-28 14:55] VITALS: BP 145/84; PULSE 118
[2022-04-28] MEDS: HYDROcodone/APAP 5-325MG 1 EACH TAB PO PRN (15:52)
--- NOTE | 2022-04-28 18:32 | P.DS ---
Providers Date of admission: 04/25/22 21:20 Expected date of discharge: 04/28/22 Attending physician: Aman Guzman Consults: 04/24/22 20:03 Consult Physician Routine Consulting Provider: Maryse John Consult Reason/Comments: per barroso syndrome Do you want consulting provider notified?: Yes 04/25/22 10:30 Consult Physician Routine Consulting Provider: Ramón Tadeo Consult Reason/Comments: per barroso syndrome right eye blurry itchy Do you want consulting provider notified?: Yes 04/25/22 21:09 Consult Physician Routine Consulting Provider: Virginie Nair Consult Reason/Comments: Right facial weakness/pain/shingles Do you want consulting provider notified?: Yes Primary care physician: Natanael Orosco [facility] Course: Chief Complaint: Right face numbness This is a pleasant 46-year-old patient who follows with Dr. Orosco. Chronic stable medical conditions include diabetes, hypertension, chronic pulmonary embolism in 2010 in 2003 on xarelto. Patient developed shingles in the right lateral lower abdomen wall about 2 weeks ago. Has some pain itching in that area. Yesterday patient noticed right-sided face to become numb. And also bit painful. Also feels a bit numb. Decreased blink in the right eye. Discomfort in the right eye. Decided to come in. Patient had not seek in any medical attention for the same. No headache. No fe jacob no chills Patient started on IV acyclovir. Consultation to ID, ophthalmology, neurology done. Artificial tears, eye patch to right eye. April 26: Patch on the right eye. Still tenderness in the right cheek. No headache. No nausea vomiting. Discussed with the patient has been at the bedside. ID workup in place. April 27: No new findings. IV acyclovir. Prednisone added by neurology. Per neurology felt to be tried sided Lei's palsy. Awaiting Lyme disease lab results. April 28: Discussed with ID Dr. Bradley.. Patient okay to be discharged on Valtrex and doxycycline. Also discussed with Dr. Muro from neurology. He is arranging for a prescription for prednisone taper. 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 Discussed with nurse. Patient to follow with ID regarding his Lyme workup Discussion and discharge planning more than 35 minutes Past medical history to include: Diabetes, GI bleed, hypertension, bony embolism in 2003, 2009, workup was n egative, anxiety depression PTSD Social history: . Homemaker. Alcohol rarely. Nonsmoker Physical examination: VITAL SIGNS: 98.3, 84, 18, 113 with 68, 96% room air GENERAL: Sitting up in bed, awake EYES: Patch on the right eye HEENT: External appearance of nose and ears normal, oral cavity grossly normal. NECK: JVD not raised; masses not palpable. HEART: First and second heart sounds are normal; no edema. LUNGS: Respiratory rate normal; clear to auscultation. ABDOMEN: Soft, nontender, liver spleen not palpable, no masses palpable. . Some healing rash off herpes zoster along the L1 L3 dermatome PSYCH: Alert and oriented x3; mood and affect. Anxiousl. MUSCULOSKELETAL:No Clubbing/cyanosis;muscles-grossly intact NEUROLOGICAL: Right facial decreased sensation, mild tender, left corner of the mouth or to the left but smiling, right eye patch INVESTIGATIONS, reviewed in the clinical context: WBC 10.4 hemoglobin 10.7 platelets 370 potassium 4.3 creatinine 0.64 Herpes simplex virus IgG, HSV type II IgG, VZV IgG all positive Assessment and plan: - Acute herpes zoster in the right abdominal wall- for 2 weeks IV acyclovir. Patch to the right eye. Artificial tears. 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 -Diabetes mellitus type 2, chronic and oral hypoglycemic Glucophage. Sliding scale insulin -Essential hypertension Zestril -Chronic pulmonary embolism in 2003 and 2009 Xarelto -Depression and anxiety not otherwise specified Cymbalta Disposition: Home Plan - Discharge Summary New Discharge Prescriptions: New Doxycycline Hyclate 100 mg PO BID 19 Days #38 tab valACYclovir HCL [Valtrex] 1,000 mg PO Q8H #21 tablet No Action metFORMIN HCL [Glucophage] 1,000 mg PO BID Rivaroxaban [Xarelto] 20 mg PO HS Fremanezumab-Vfrm [Ajovy Autoinjector] 1 syr SQ QMONTHLY DULoxetine HCL [Cymbalta] 30 mg PO HS Cyclobenzaprine [Flexeril] 10 mg PO HS lisinopriL [Zestril] 10 mg PO HS Discharge Medication List Cyclobenzaprine [Flexeril] 10 mg PO HS 04/24/22 [History] DULoxetine HCL [Cymbalta] 30 mg PO HS 04/24/22 [History] Fremanezumab-Vfrm [Ajovy Autoinjector] 1 syr SQ QMONTHLY 04/24/22 [History] Rivaroxaban [Xarelto] 20 mg PO HS 04/24/22 [History] lisinopriL [Zestril] 10 mg PO HS 04/24/22 [History] metFORMIN HCL [Glucophage] 1,000 mg PO BID 04/24/22 [History] Doxycycline Hyclate 100 mg PO BID 19 Days #38 tab 04/28/22 [Rx] valACYclovir HCL [Valtrex] 1,000 mg PO Q8H #21 tablet 04/28/22 [Rx] Follow up Appointment(s)/Referral(s): Natanael Orosco MD [Primary Care Provider] - 1-2 days Maryse John MD [STAFF PHYSICIAN] - 1 Week Patient Instructions/Handouts: Shingles (DC), Lei Palsy (DC) Discharge Disposition: HOME SELF-CARE
== END 2022-04-28 16:45 | disposition home or self-care (01) | DRG 74 ==
LOC: EC 15:19 → 6NMEDSUR 21:06 → OBSVTOIN 04-25 21:20
PROVIDERS: ADMIT Hospitalist; ATTEND Hospitalist
DX: B02.21 Postherpetic geniculate ganglionitis (principal); B02.9 Zoster without complications; F43.10 Post-traumatic stress disorder, unspecified; G43.909 Migraine, unspecified, not intractable, without status migrainosus; G51.0 Bell's palsy; I10 Essential (primary) hypertension; E11.649 Type 2 diabetes mellitus with hypoglycemia without coma; F32.A Depression, unspecified; Z86.711 Personal history of pulmonary embolism; Z79.01 Long term (current) use of anticoagulants; Z79.84 Long term (current) use of oral hypoglycemic drugs; Z79.899 Other long term (current) drug therapy; Z82.49 Family history of ischemic heart disease and other diseases of the circulatory system; Z86.19 Personal history of other infectious and parasitic diseases; Z87.891 Personal history of nicotine dependence; E66.9 Obesity, unspecified; Z68.34 Body mass index [BMI] 34.0-34.9, adult; Z98.84 Bariatric surgery status; Z88.5 Allergy status to narcotic agent; Z87.19 Personal history of other diseases of the digestive system
CPT/HCPCS: 70450; 80053; 83036; 85025; 86140; 86618; 86694; 86695; 86696; 86787; 96361; 96374; 96375; 96376; 99285

== ENCOUNTER → 2022-07-02 | Outpatient (CLI) | payer BC ==
--- NOTE | 2022-07-02 10:34 | MM ---
Reason for Exam: Clinical finding. Last screening mammogram was performed 11 month(s) ago. Indicated Problems: Lump or thickening of the left side for 1 Week(s). Patient History: Menarche at age 11. First Full-Term at age 20. Maternal grandmother had breast cancer. Maternal uncle had breast cancer. Last menstrual period: 06/14/2022 Risk Values: Karissa 5 year model risk: 0.8%. NCI Lifetime model risk: 8.2%. Tissue Density: The breast tissue is heterogeneously dense. This may lower the sensitivity of mammography. Findings: Analyzed By CAD. No distinct mass identified. Benign calcifications noted. Ultrasound recommended at the site of clinical concern. Overall Assessment: Incomplete: need additional imaging evaluation, BI-RAD 0 Management: Diagnostic Breast Ultrasound of the left breast. A clinical breast exam by your physician is recommended on an annual basis and results should be correlated with mammographic findings. This exam should not preclude additional follow-up of suspicious palpable abnormalities. Results were given to the patient verbally at the time of exam. Electronically signed and approved by: Moe Page M.D. Radiologis
--- NOTE | 2022-07-02 10:56 | USB ---
Reason for Exam: Clinical finding. Patient History: Menarche at age 11. First Full-Term at age 20. Maternal grandmother had breast cancer. Maternal uncle had breast cancer. Risk Values: Karissa 5 year model risk: 0.8%. NCI Lifetime model risk: 8.2%. Prior Study Comparison: 02/22/2018 Screening Mammogram, [facility]. 06/14/2020 Bilateral Screening Mammogram, [facility]. 07/25/2021 Bilateral Screening Mammogram, [facility]. Findings: The area of palpable concern of the left breast, the lower outer quadrant of the left breast, the axilla of the left breast and the retroareolar of the left breast were scanned. No solid or cystic masses are identified.. Overall Assessment: Negative, BI-RAD 1 Management: Screening Mammogram of both breasts in 1 year. A clinical breast exam by your physician is recommended on an annual basis and results should be correlated with mammographic findings. This exam should not preclude additional follow-up of suspicious palpable abnormalities. Results were given to the patient verbally at the time of exam. Electronically signed and approved by: Moe Page M.D. Radiologis
== END | disposition home or self-care (01) ==
LOC: RADMAMWWP 10:01
PROVIDERS: ATTEND Obstetrics & Gynecology
DX: N63.20 Unspecified lump in the left breast, unspecified quadrant (principal); N63.10 Unspecified lump in the right breast, unspecified quadrant; Z80.3 Family history of malignant neoplasm of breast
CPT/HCPCS: 77062; 77066

== ENCOUNTER → 2024-01-22 | Outpatient (CLI) | payer BC ==
--- NOTE | 2024-01-25 07:54 | MM ---
Reason for Exam: Screening (asymptomatic). Last mammogram was performed 1 year(s) and 7 month(s) ago. Patient History: Menarche at age 11. First Full-Term at age 20. Maternal grandmother had breast cancer. Maternal uncle had breast cancer. Risk Values: Karissa 5 year model risk: 0.9%. NCI Lifetime model risk: 8.0%. Prior Study Comparison: 06/14/2020 Bilateral Screening Mammogram, [facility]. 07/25/2021 Bilateral Screening Mammogram, [facility]. 07/02/2022 Bilateral MG 3D diag mammo w/cad [facility], [facility]. Tissue Density: The breasts are heterogeneously dense, which may obscure small masses. Findings: Analyzed By CAD. There is no suspicious group of microcalcifications or new suspicious mass in either breast. Overall Assessment: Benign, BI-RAD 2 Management: Screening Mammogram of both breasts in 1 year. . Patient should continue monthly self-breast exams. A clinical breast exam by your physician is recommended on an annual basis. This exam should not preclude additional follow-up of suspicious palpable abnormalities. Note on Karissa scores and lifetime risk: 1. A Karissa score greater than 3% is considered moderate risk. If this is the case, consider specialist referral to assess eligibility for a risk reducing agent. 2. If overall lifetime risk for the development of breast cancer is 20% or higher, the patient may qualify for future screening with alternating mammogram and breast MRI. Electronically signed and approved by: Moe Page M.D. Radiologis
== END | disposition home or self-care (01) ==
LOC: RADMAMWWP 12:38
PROVIDERS: ATTEND Obstetrics & Gynecology
DX: Z12.31 Encounter for screening mammogram for malignant neoplasm of breast (principal); R92.333 Mammographic heterogeneous density, bilateral breasts; Z80.3 Family history of malignant neoplasm of breast
CPT/HCPCS: 77063; 77067